=== PATIENT | male | born 1995 | race Caucasian/White ===

== ENCOUNTER 2016-08-20 16:44 | Emergency (ER) | payer BC ==
--- NOTE | 2016-08-20 18:28 | EDPHY ---
H & P Stated Complaint: Had CP last pm;none now;very anxious;no cocaine or meth use HPI/ROS: CHIEF COMPLAINT: Chest pain HISTORY OF PRESENT ILLNESS: several days of left-sided chest pain. This came on gradually about a week ago but worsened last night. It is a chronic, moderate to severe pain. It does not radiate. It is not particularly worsened with activity. No illicit drug use. No fevers or chills. No cough. Has been taking his mother's her lorazepam that reportedly improved his symptoms but does not resolve. no other associated complaints or modifying REVIEW OF SYSTEMS: Ten system review of systems performed. Negative unless otherwise noted in HPI General Appearance: Alert, no distress Head: normocephalic, atraumatic Eyes: Pupils equal and round, no conjunctival pallor or injection ENT, Mouth: Mucous membranes moist Neck: Normal inspection, supple, non-tender Respiratory: Lungs are clear to auscultation Cardiovascular: Regular rate and rhythm Gastrointestinal: Abdomen is soft and nontender Back: non-tender, no bony abnormalities Neurological: A&O, nonfocal, normal gait Skin: Warm and dry, no rash Extremities: Nontender, no pedal edema Psychiatric: Mood and affect normal Differential Diagnoses: 1. Anxiety 2. Chest pain 3. PE MDM: chest pain and a 21-year-old male without any risk factors for coronary artery disease or venous thrombolic event. Vital signs are well within normal limits. There is no evidence of DVT on examination. D-dimer, EKG, chest x-ray will be ordered. He remains hemodynamically stable and in no acute distress. Re-evaluation: Chest x-rays within normal limits. D-dimer is negative. EKG reveals a very mild short TR, but no other acute findings. This was all discussed with the patient and we will discharge him home with treatment for the possibility of this being anxiety related. I encouraged him to follow up with primary care physician to discuss the short [place] interval as well as the chest pain and potentially anxiety workup. Patient is comfortable this plan and discharged home stable condition EKG rate 66. Normal axis. Normal sinus rhythm with early repolarization. No ST depressions or elevations. T-wave inversions only in AVR. Interpretation: Normal sinus rhythm with early repolarization and sharp ER. - Personal History Current Tetanus Diphtheria and Acellular Pertussis (TDAP): Yes - Medical/Surgical History Hx Asthma: Yes Other PMH: Asthma. anxiety - Social History Smoking Status: Never smoked Constitutional: Initial Vital Signs Temperature (C) 98.4 F 08/20/16 17:05 Heart Rate 96 08/20/16 17:05 Respiratory Rate 18 08/20/16 17:05 Blood Pressure 141/100 H 08/20/16 17:05 O2 Sat (%) 97 08/20/16 17:05 O2 Delivery Mode Room Air Allergies/Adverse Reactions: mold Allergy (Verified 08/20/16 17:05) almonds Allergy (Severe, Uncoded 08/20/16 17:09) resp/hives Home Medications: Medication Instructions Recorded Xopenex PRN 10/08/15 Beclomethasone Qvar 40 [Qvar 40 1 puffs IH BID 08/20/16 (*)] hydrOXYzine HCL [Hydroxyzine HCl] 50 mg PO Q8HRS PRN #20 tablet 08/20/16 Medical Decision Making - Data Points Laboratory Results: 08/20/16 19:05 D-Dimer < 0.27 ug/mLFEU (0.00-0.50) Departure - Departure Disposition: Home, Routine, Self-Care Clinical Impression: Acute chest pain, Short [place]-normal QRS complex syndrome, Anxiety reaction Condition: Good Instructions: Chest Pain (ED) Prescriptions: hydrOXYzine HCL [Hydroxyzine HCl] 50 mg PO Q8HRS PRN #20 tablet PRN Reason: Anxiety
--- NOTE | 2016-08-20 18:31 | CPEKG ---
Heart Rate: 66 RR Interval: 909 P-R Interval: 134 QRSD Interval: 88 QT Interval: 408 QTC Interval: 428 P [place]: 69 QRS [place]: 70 T Wave [place]: 50 EKG Severity - NORMAL ECG - EKG Impression: SINUS RHYTHM EKG Impression: ST ELEV, PROBABLE NORMAL EARLY REPOL PATTERN Electronically Signed By: Jordan Mi 20-Aug-2016 20:16:23
--- NOTE | 2016-08-20 18:41 | DX ---
Portable AP Upright Chest, 2 Views, at 6:18 p.m. Clinical History: 21-year-old male with chest pain since this morning. Comparison Study: None. Findings: The cardiac size is within normal limits, given the portable AP technique. There is no foca l infiltrate, atelectasis, pleural effusion, peripheral interstitial edema, or pneumothorax. The lung s are well-expanded. The osseous structures are age-appropriate. Impression: No acute abnormality.
[2016-08-20 19:54] VITALS: BP 126/76; PULSE 79; RESP 12; TEMP 98.8; O2SAT 96
== END 2016-08-20 19:54 | disposition home or self-care (01) ==
DX: R07.9 Chest pain, unspecified (principal); I45.6 Pre-excitation syndrome; F41.1 Generalized anxiety disorder; J45.909 Unspecified asthma, uncomplicated

== ENCOUNTER → 2018-01-17 | Outpatient (CLI) | payer BC | LOC: BMCIMAGING 13:02 | PROVIDERS: ATTEND Emergency Medicine | DX: M79.672 Pain in left foot (principal); X50.0XXA Overexertion from strenuous movement or load, initial encounter ==